=== PATIENT | male | born 1985 | race American Indian/Alaskan Native ===

== ENCOUNTER 2017-05-10 03:17 | Emergency (ER) | payer MEDICAID ==
[2017-05-10 03:57] VITALS: BP 121/86
[2017-05-10 04:30] LABS: Basophils % (Auto) 1.1 % (0.0-1.8); Eosinophils % (Auto) 2.6 % (0.0-4.3); Hematocrit 40.9 % (35.5-45.6); Hemoglobin 13.4 gm/dl (11.8-15.2); Mean Corpuscular HGB Conc 33 % (32-34); Mean Corpuscular Hemoglobin 29 pg (28-32); Mean Corpuscular Volume 89 fl (84-94); Platelet Count 299 K/mm3 (140-440); Red Blood Count 4.61 M/mm3 (3.65-5.03); Red Cell Distribution Width 13.3 % (13.2-15.2); White Blood Count 5.5 K/mm3 (4.5-11.0)
[2017-05-10 04:42] LABS: Anion Gap 18 mmol/L; Blood Urea Nitrogen 11 mg/dL (9-20); Calcium 9.5 mg/dL (8.4-10.2); Carbon Dioxide 26 mmol/L (22-30); Chloride 98.9 mmol/L (98-107); Glucose 122 mg/dL (75-100); Potassium 3.7 mmol/L (3.6-5.0); Sodium 139 mmol/L (137-145)
[2017-05-10 05:28] LABS: Urine Drugs of Abuse Note Disclamer
[2017-05-10 05:38] LABS: Bilirubin,Urine NEG (Negative); Blood,Urine NEG (Negative); Ketones,Urine NEG (Negative); Leukocyte Esterase,Urine NEG (Negative); Mucus,Urine 2+ /HPF; Nitrite,Urine NEG (Negative); Protein,Urine <15 mg/dL mg/dL (Negative)
== END 2017-05-10 05:00 | disposition left against medical advice (07) ==
LOC: EEVIPCON 03:17 → ED 03:17
DX: S09.90XA Unspecified injury of head, initial encounter (principal); Z53.21 Procedure and treatment not carried out due to patient leaving prior to being seen by health care provider; Y08.89XA Assault by other specified means, initial encounter; Y93.9 Activity, unspecified; Y92.9 Unspecified place or not applicable; Y99.9 Unspecified external cause status
CPT/HCPCS: 36415; 80048; 80307; 81001; 85025; G0480; 80320

== ENCOUNTER 2017-05-11 05:44 | Emergency (ER) | payer MEDICAID ==
[2017-05-11 05:54] VITALS: BP 109/79
[2017-05-11 06:17] LABS: Basophils % (Auto) 0.7 % (0.0-1.8); Eosinophils % (Auto) 1.8 % (0.0-4.3); Hematocrit 40.3 % (35.5-45.6); Hemoglobin 13.2 gm/dl (11.8-15.2); Mean Corpuscular HGB Conc 33 % (32-34); Mean Corpuscular Hemoglobin 29 pg (28-32); Mean Corpuscular Volume 90 fl (84-94); Platelet Count 299 K/mm3 (140-440); Red Blood Count 4.48 M/mm3 (3.65-5.03); Red Cell Distribution Width 13.6 % (13.2-15.2)
[2017-05-11 06:26] LABS: Anion Gap 15 mmol/L; BUN/Creatinine Ratio 11.81; Blood Urea Nitrogen 13 mg/dL (9-20); Calcium 9.3 mg/dL (8.4-10.2); Carbon Dioxide 27 mmol/L (22-30); Chloride 102.6 mmol/L (98-107); Glucose 91 mg/dL (75-100); Sodium 141 mmol/L (137-145)
== END 2017-05-11 11:10 | disposition left against medical advice (07) ==
LOC: ED 05:44 → EEVIPCON 05:44 → ED 11:10
DX: R45.851 Suicidal ideations (principal); R44.0 Auditory hallucinations; Z53.21 Procedure and treatment not carried out due to patient leaving prior to being seen by health care provider
CPT/HCPCS: 36415; 80048; 85025; G0480; 80320

== ENCOUNTER 2017-05-12 01:55 | Emergency (ER) | payer MEDICAID ==
[2017-05-12 02:36] LABS: Urine Drugs of Abuse Note Disclamer
[2017-05-12 03:06] LABS: Bilirubin,Urine NEG (Negative); Blood,Urine NEG (Negative); Ketones,Urine NEG (Negative); Leukocyte Esterase,Urine NEG (Negative); Mucus,Urine FEW /HPF; Nitrite,Urine NEG (Negative); Protein,Urine <15 mg/dL mg/dL (Negative); WBC,Urine < 1.0 /HPF (0.0-6.0)
[2017-05-12 04:08] LABS: Basophils % (Auto) 0.7 % (0.0-1.8); Eosinophils % (Auto) 2.7 % (0.0-4.3); Hematocrit 38.5 % (35.5-45.6); Hemoglobin 12.7 gm/dl (11.8-15.2); Mean Corpuscular HGB Conc 33 % (32-34); Mean Corpuscular Hemoglobin 29 pg (28-32); Mean Corpuscular Volume 89 fl (84-94); Platelet Count 298 K/mm3 (140-440); Red Blood Count 4.33 M/mm3 (3.65-5.03); Red Cell Distribution Width 13.4 % (13.2-15.2)
[2017-05-12 04:21] LABS: Anion Gap 17 mmol/L; Blood Urea Nitrogen 15 mg/dL (9-20); Calcium 9.1 mg/dL (8.4-10.2); Carbon Dioxide 26 mmol/L (22-30); Chloride 104.4 mmol/L (98-107); Glucose 132 mg/dL (75-100); Potassium 4.1 mmol/L (3.6-5.0); Sodium 143 mmol/L (137-145)
--- NOTE | 2017-05-12 06:31 | Emergency Department Report ---
ED Psych HPI - General Chief Complaint: Psych Stated Complaint: MH EVAL Time Seen by Provider: 05/12/17 06:30 Source: patient Mode of arrival: Ambulatory - History of Present Illness Initial Comments: Patient admits to be homeless. He states he is suicidal. He told the mental health counselor he has some command hallucinations telling him to kill himself. He did not offer this information to me. The is on psychiatric medications but has run out or is noncompliant. He is not currently hallucinating. MD Complaint: suicidal ideation -: unknown Associated Psychiatric Symptoms: auditory hallucinations History of same: Yes Quality: intermittent Improves With: none Worsens With: none Context: other (homeless) Associated Symptoms: denies other symptoms Treatments Prior to Arrival: none - Related Data Allergies Allergy/AdvReac Type Severity Reaction Status Date / Time No Known Allergies Allergy Verified 05/10/17 03:57 ED Review of Systems ROS: Stated complaint: MH EVAL Other details as noted in HPI Constitutional: denies: chills, fever Eyes: denies: eye pain, eye discharge, vision change ENT: denies: ear pain, throat pain Respiratory: denies: cough, shortness of breath, wheezing Cardiovascular: denies: chest pain, palpitations Endocrine: no symptoms reported Gastrointestinal: denies: abdominal pain, nausea, diarrhea Genitourinary: denies: urgency, dysuria Musculoskeletal: denies: back pain, joint swelling, arthralgia Skin: denies: rash, lesions Neurological: denies: headache, weakness, paresthesias Psychiatric: depression, auditory hallucinations, suicidal thoughts. denies: anxiety Hematological/Lymphatic: denies: easy bleeding, easy bruising ED Past Medical Hx - Past Medical History Previous Medical History?: Yes Hx Psychiatric Treatment: Yes (schizo) - Surgical History Past Surgical History?: No - Social History Smoking Status: Current Every Day Smoker Substance Use Type: None ED Physical Exam - General Limitations: No Limitations General appearance: alert, in no apparent distress - Head Head exam: Present: atraumatic, normocephalic - Eye Eye exam: Present: normal appearance. Absent: scleral icterus - ENT ENT exam: Present: normal exam, mucous membranes moist - Neck Neck exam: Present: normal inspection - Respiratory Respiratory exam: Present: normal lung sounds bilaterally. Absent: respiratory distress - Cardiovascular Cardiovascular Exam: Present: regular rate, normal rhythm. Absent: systolic murmur, diastolic murmur, rubs, gallop - GI/Abdominal GI/Abdominal exam: Present: soft, normal bowel sounds. Absent: distended, tenderness, guarding, rebound, rigid - Rectal Rectal exam: Present: deferred - Extremities Exam Extremities exam: Present: normal inspection - Back Exam Back exam: Present: normal inspection - Neurological Exam Neurological exam: Present: alert, oriented X3, CN II-XII intact, normal gait. Absent: motor sensory deficit - Psychiatric Psychiatric exam: Present: normal affect, normal mood - Skin Skin exam: Present: warm, dry, intact, normal color. Absent: rash ED Course Vital Signs 05/12/17 05/12/17 02:20 03:00 Temperature 98.5 F Pulse Rate 60 Respiratory 18 16 Rate Blood Pressure 114/72 [Right] O2 Sat by Pulse 100 100 Oximetry - Reevaluation(s) Reevaluation #1: Patient was 1013 at the request of the mental health counselor. She obtained information that he had command hallucinations urging him to kill himself. 05/12/17 14:09 ED Medical Decision Making - Lab Data Result diagrams: 05/12/17 03:27 05/12/17 03:27 Laboratory Results - last 24 hr 05/12/17 05/12/17 05/12/17 03:27 03:27 03:27 WBC 7.0 RBC 4.33 Hgb 12.7 Hct 38.5 MCV 89 MCH 29 MCHC 33 RDW 13.4 Plt Count 298 Lymph % (Auto) 27.2 [place] % (Auto) 8.9 H Eos % (Auto) 2.7 Baso % (Auto) 0.7 Lymph # 1.9 [place] # 0.6 Eos # 0.2 Baso # 0.0 Seg Neutrophils % 60.5 Seg Neutrophils # 4.2 Sodium 143 Potassium 4.1 Chloride 104.4 Carbon Dioxide 26 Anion Gap 17 BUN 15 Creatinine 1.2 Estimated GFR > 60 BUN/Creatinine Ratio 12.50 Glucose 132 H Calcium 9.1 Urine Color Urine Turbidity Urine pH Ur Specific [place] Urine Protein Urine Glucose (UA) Urine Ketones Urine Blood Urine Nitrite Urine Bilirubin Urine Urobilinogen Ur Leukocyte Esterase Urine WBC (Auto) Urine RBC (Auto) U Epithel Cells (Auto) Urine Mucus Salicylates Urine Opiates Screen Urine Methadone Screen Acetaminophen Ur Barbiturates Screen Ur Phencyclidine Scrn Ur Amphetamines Screen U Benzodiazepines Scrn Urine Cocaine Screen U Marijuana (THC) Screen Drugs of Abuse Note Plasma/Serum Alcohol < 0.01 05/12/17 05/12/17 05/12/17 03:27 03:27 Unknown WBC RBC Hgb Hct MCV MCH MCHC RDW Plt Count Lymph % (Auto) [place] % (Auto) Eos % (Auto) Baso % (Auto) Lymph # [place] # Eos # Baso # Seg Neutrophils % Seg Neutrophils # Sodium Potassium Chloride Carbon Dioxide Anion Gap BUN Creatinine Estimated GFR BUN/Creatinine Ratio Glucose Calcium Urine Color Yellow Urine Turbidity Clear Urine pH 6.0 Ur Specific [place] 1.025 Urine Protein <15 mg/dl Urine Glucose (UA) Neg Urine Ketones Neg Urine Blood Neg Urine Nitrite Neg Urine Bilirubin Neg Urine Urobilinogen 2.0 Ur Leukocyte Esterase Neg Urine WBC (Auto) < 1.0 Urine RBC (Auto) 2.0 U Epithel Cells (Auto) < 1.0 Urine Mucus Few Salicylates < 0.3 L Urine Opiates Screen Urine Methadone Screen Acetaminophen < 15.0 Ur Barbiturates Screen Ur Phencyclidine Scrn Ur Amphetamines Screen U Benzodiazepines Scrn Urine Cocaine Screen U Marijuana (THC) Screen Drugs of Abuse Note Plasma/Serum Alcohol 05/12/17 Unknown WBC RBC Hgb Hct MCV MCH MCHC RDW Plt Count Lymph % (Auto) [place] % (Auto) Eos % (Auto) Baso % (Auto) Lymph # [place] # Eos # Baso # Seg Neutrophils % Seg Neutrophils # Sodium Potassium Chloride Carbon Dioxide Anion Gap BUN Creatinine Estimated GFR BUN/Creatinine Ratio Glucose Calcium Urine Color Urine Turbidity Urine pH Ur Specific [place] Urine Protein Urine Glucose (UA) Urine Ketones Urine Blood Urine Nitrite Urine Bilirubin Urine Urobilinogen Ur Leukocyte Esterase Urine WBC (Auto) Urine RBC (Auto) U Epithel Cells (Auto) Urine Mucus Salicylates Urine Opiates Screen Presumptive negative Urine Methadone Screen Presumptive negative Acetaminophen Ur Barbiturates Screen Presumptive negative Ur Phencyclidine Scrn Presumptive negative Ur Amphetamines Screen Presumptive negative U Benzodiazepines Scrn Presumptive negative Urine Cocaine Screen Presumptive negative U Marijuana (THC) Screen Presumptive positive Drugs of Abuse Note Disclamer Plasma/Serum Alcohol Laboratory Results - last 24 hr 05/12/17 05/12/17 05/12/17 03:27 03:27 03:27 WBC 7.0 RBC 4.33 Hgb 12.7 Hct 38.5 MCV 89 MCH 29 MCHC 33 RDW 13.4 Plt Count 298 Lymph % (Auto) 27.2 [place] % (Auto) 8.9 H Eos % (Auto) 2.7 Baso % (Auto) 0.7 Lymph # 1.9 [place] # 0.6 Eos # 0.2 Baso # 0.0 Seg Neutrophils % 60.5 Seg Neutrophils # 4.2 Sodium 143 Potassium 4.1 Chloride 104.4 Carbon Dioxide 26 Anion Gap 17 BUN 15 Creatinine 1.2 Estimated GFR > 60 BUN/Creatinine Ratio 12.50 Glucose 132 H Calcium 9.1 Urine Color Urine Turbidity Urine pH Ur Specific [place] Urine Protein Urine Glucose (UA) Urine Ketones Urine Blood Urine Nitrite Urine Bilirubin Urine Urobilinogen Ur Leukocyte Esterase Urine WBC (Auto) Urine RBC (Auto) U Epithel Cells (Auto) Urine Mucus Salicylates Urine Opiates Screen Urine Methadone Screen Acetaminophen Ur Barbiturates Screen Ur Phencyclidine Scrn Ur Amphetamines Screen U Benzodiazepines Scrn Urine Cocaine Screen U Marijuana (THC) Screen Drugs of Abuse Note Plasma/Serum Alcohol < 0.01 05/12/17 05/12/17 05/12/17 03:27 03:27 Unknown WBC RBC Hgb Hct MCV MCH MCHC RDW Plt Count Lymph % (Auto) [place] % (Auto) Eos % (Auto) Baso % (Auto) Lymph # [place] # Eos # Baso # Seg Neutrophils % Seg Neutrophils # Sodium Potassium Chloride Carbon Dioxide Anion Gap BUN Creatinine Estimated GFR BUN/Creatinine Ratio Glucose Calcium Urine Color Yellow Urine Turbidity Clear Urine pH 6.0 Ur Specific [place] 1.025 Urine Protein <15 mg/dl Urine Glucose (UA) Neg Urine Ketones Neg Urine Blood Neg Urine Nitrite Neg Urine Bilirubin Neg Urine Urobilinogen 2.0 Ur Leukocyte Esterase Neg Urine WBC (Auto) < 1.0 Urine RBC (Auto) 2.0 U Epithel Cells (Auto) < 1.0 Urine Mucus Few Salicylates < 0.3 L Urine Opiates Screen Urine Methadone Screen Acetaminophen < 15.0 Ur Barbiturates Screen Ur Phencyclidine Scrn Ur Amphetamines Screen U Benzodiazepines Scrn Urine Cocaine Screen U Marijuana (THC) Screen Drugs of Abuse Note Plasma/Serum Alcohol 05/12/17 Unknown WBC RBC Hgb Hct MCV MCH MCHC RDW Plt Count Lymph % (Auto) [place] % (Auto) Eos % (Auto) Baso % (Auto) Lymph # [place] # Eos # Baso # Seg Neutrophils % Seg Neutrophils # Sodium Potassium Chloride Carbon Dioxide Anion Gap BUN Creatinine Estimated GFR BUN/Creatinine Ratio Glucose Calcium Urine Color Urine Turbidity Urine pH Ur Specific [place] Urine Protein Urine Glucose (UA) Urine Ketones Urine Blood Urine Nitrite Urine Bilirubin Urine Urobilinogen Ur Leukocyte Esterase Urine WBC (Auto) Urine RBC (Auto) U Epithel Cells (Auto) Urine Mucus Salicylates Urine Opiates Screen Presumptive negative Urine Methadone Screen Presumptive negative Acetaminophen Ur Barbiturates Screen Presumptive negative Ur Phencyclidine Scrn Presumptive negative Ur Amphetamines Screen Presumptive negative U Benzodiazepines Scrn Presumptive negative Urine Cocaine Screen Presumptive negative U Marijuana (THC) Screen Presumptive positive Drugs of Abuse Note Disclamer Plasma/Serum Alcohol Critical care attestation.: If time is entered above; I have spent that time in minutes in the direct care of this critically ill patient, excluding procedure time. ED Disposition Clinical Impression: Suicidal ideation Schizophrenia Qualifiers: Schizophrenia type: other Qualified Code(s): F20.89 - Other schizophrenia; F20.8 - Other schizophrenia Disposition: [id number] PSY HOSP/PSY UNIT Is pt being admited?: No Does the pt Need Aspirin: No Condition: Stable Referrals: PRIMARY CARE [Primary Care Provider] - 3-5 Days Time of Disposition: 11:00
--- NOTE | 2017-05-12 12:28 | Consultation ---
History of Present Illness - Reason for Consult Consult date: 05/12/17 Reason for consult: Mental Health Evaluation Requesting physician: SANKET CAMACHO - Chief Complaint Chief complaint: "I am depressed" - History of Present Psychiatric Illness 32 y.o. black male presenting to [facility] with depressions and SI's. Today patient is calm and cooperative during the assessment. Patient has a foul odor. I asked if he would like to shower, he stated "Yes, it's been a couple of days." He stated that he is upset with his life. He stated that he want to be a better father to his kids (13) and get off the streets. Per the patient, he stated that he resides with his father, but live with his "baby mama." He stated that he got into an argument with his his baby mama and that put him over the "top." He stated that he is suicidal with a plan to use a gun. He stated that he attempted suicide in the past, but the gun jammed (misfire). He stated that depression has been a major problem in his life since he was 13 years old. He stated that he was in a inpatient facility a couple of months ago for SI's and was prescribed Wellbutrin. He stated that the Wellbutrin was effective. He stated that he ran out of the medication 2 weeks ago. He stated that he failed to get a his prescription refilled. He admit to depression symptoms (sadness, hopeless, and lack of energy). Patient rate his depression 10/10, with 10 being the worse. He stated that his anxiety is high, because he worries about his next move in life. He denies HI's, AVH's at this time, but stated he may hear voices "sometimes". He stated last night was the first time he slept well because of the depression. He stated that he consume alcohol occasionally. He admit to smoking marijuana, but denies any other recreational drug use. Medications and Allergies Allergies Allergy/AdvReac Type Severity Reaction Status Date / Time No Known Allergies Allergy Verified 05/10/17 03:57 Past psychiatric history - Past Medical History Past Medical History: No medical history Past Surgical History: No surgical history - past Psychiatric treatment and history Psych: Depression psychiatric treatment history: Inpatient psy services a month ago. Patient stated that it's a possibility that a fam member has a mental illness. Mental Status Exam - Vital signs Last Vital Signs Temp 98.5 F 05/12/17 02:20 Pulse 60 05/12/17 02:20 Resp 16 05/12/17 03:00 BP 114/72 05/12/17 02:20 Pulse Ox 100 05/12/17 03:00 - Exam Narrative exam: ROS: (+) Depression MSE: Appearance: calm, cooperative Behavior: good eye contact Speech: regular rate and tone Mood: "depressed" Affect: flat Thought Process: linesr Thought Content: denies HI's and AVH's Motor Activity: ambulatory Cognition: A/Ox 3 Insight: fair Judgment: fair Results Result Diagrams: 05/12/17 03:27 05/12/17 03:27 Abnormal lab results 05/12/17 05/12/17 05/12/17 Range/Units 03:27 03:27 03:27 [place] % (Auto) 8.9 H (0.0-7.3) % Glucose 132 H (75-100) mg/dL Salicylates < 0.3 L (2.8-20.0) mg/dL All other labs normal. Assessment and Plan Assessment and plan: Impression: MDD severe type, MALENA. Today patient is calm and cooperative during the assessment. Patient has a foul odor. I asked if he would like to shower, he stated "Yes, it's been a couple of days." He stated that he is upset with his life. He stated that he want to be a better father to his kids (13) and get off the streets. Per the patient, he stated that he resides with his father, but live with his "baby mama." Patient is a threat to self. Patient positive for marijuana. DDx: R/O Bipolar Recommendation/Plan: Continue 1013 with placement to inpatient psy services. Start Wellbutrin 150 mg PO daily for depression/anxiety and Vistaril 25 mg PO TID for acute anxiety. Discussed possible suicidality and medication induced guille reference antidepressants.
[2017-05-12] MEDS ORDERED: WELLBUTRIN PO SCH (14:00)
[2017-05-12] MEDS ORDERED: VISTARIL PO SCH (14:00)
[2017-05-12 17:34] VITALS: BP 117/64
== END 2017-05-12 17:36 ==
LOC: ED 01:55 → EEVIPCON 01:55 → ED 17:36
DX: F20.9 Schizophrenia, unspecified (principal); F17.210 Nicotine dependence, cigarettes, uncomplicated
CPT/HCPCS: 36415; 80048; 80307; 81001; 85025; 99285; G0480; 80320; Q0177